=== PATIENT | female | born 1985 | race Caucasian/White ===

== ENCOUNTER → 2018-01-31 | Outpatient (CLI) | payer OTHER ==
--- NOTE | 2018-01-31 07:51 | US ---
EXAMINATION TYPE: US kidneys/renal and bladder DATE OF EXAM: 01/31/2018 COMPARISON: NONE CLINICAL HISTORY: N39.0 Frequent UTIs. hx of current bladder infection, on 3rd round of antibiotics. Left flank pain. EXAM MEASUREMENTS: Right Kidney: 9.6 x 5.1 x 5.4 cm Left Kidney: 10.6 x 4.6 x 5.3 cm Right Kidney: wnl Left Kidney: wnl Bladder: mildly distended, appears wnl as visualized. Patient states her bladder is full. Bilateral Jets not seen There is no evidence for hydronephrosis at this point in time. No nephrolithiasis is seen. No khanh s are identified. The urinary bladder is anechoic.. IMPRESSION: No hydronephrosis or nephrolithiasis. The urinary bladder is incompletely distended.
== END | disposition home or self-care (01) ==
LOC: RADUSWWP 06:58
PROVIDERS: ATTEND Internal Medicine
DX: N32.89 Other specified disorders of bladder (principal)
CPT/HCPCS: 76770

== ENCOUNTER → 2019-03-27 | Outpatient (CLI) | payer OTHER ==
--- NOTE | 2019-03-27 15:15 | XR ---
EXAMINATION TYPE: XR ankle complete RT, XR foot complete RT DATE OF EXAM: 03/27/2019 CLINICAL HISTORY: Right ankle and foot pain after injury TECHNIQUE: Frontal, lateral and oblique images of the right ankle and foot are obtained. COMPARISON: None. FINDINGS: There is no acute fracture/dislocation evident in the right ankle. The ankle mortise appe ars within normal limits. The overlying soft tissue appears unremarkable. There is no acute fractur e or dislocation evident in the right foot. The joint spaces in the right foot are preserved. Small plantar calcaneal heel spurs. Overlying soft tissue is unremarkable. IMPRESSION: There is no acute fracture or dislocation in the right ankle or foot.
--- NOTE | 2019-03-27 15:16 | XR ---
EXAMINATION TYPE: XR knee complete LT DATE OF EXAM: 03/27/2019 CLINICAL HISTORY: Left knee pain after injury TECHNIQUE: Three views of the left knee are obtained. COMPARISON: None. FINDINGS: There is no acute fracture/dislocation evident in left knee. The tri-compartment joint sp aces appear within normal limits. The overlying soft tissue appears unremarkable. IMPRESSION: There is no acute fracture or dislocation in the left knee.
== END | disposition home or self-care (01) ==
LOC: RADXRMAIN 14:36
PROVIDERS: ATTEND Emergency Medicine
DX: S93.401A Sprain of unspecified ligament of right ankle, initial encounter (principal); S93.601A Unspecified sprain of right foot, initial encounter; S80.02XA Contusion of left knee, initial encounter

== ENCOUNTER → 2020-03-05 | Outpatient (CLI) | payer OTHER ==
--- NOTE | 2020-03-05 14:58 | XR ---
Lumbar spine HISTORY: R 52, pain 3 views of the lumbar spine There is multilevel spondylosis. Lumbar vertebral bodies show preserved height, alignment, and bone m ineralization. Mild loss of disc height at the intervertebral level L5-S1. Sclerosis present in the p osterior elements. IMPRESSION: Mild degenerative disc disease, facet arthropathy.
--- NOTE | 2020-03-05 14:59 | XR ---
EXAMINATION TYPE: XR knee limited LT DATE OF EXAM: 03/05/2020 CLINICAL HISTORY: Pain TECHNIQUE: Two views of the left knee are obtained. COMPARISON: Left knee x-ray dated 03/27/2019. FINDINGS: There is no acute fracture/dislocation evident in left knee. The tri-compartment joint sp aces appear stable and within normal limits. The overlying soft tissue appears unremarkable. IMPRESSION: As above. No significant change from prior.
== END | disposition home or self-care (01) ==
LOC: RADXRMAIN 14:25
PROVIDERS: ATTEND Internal Medicine
DX: M51.37 Other intervertebral disc degeneration, lumbosacral region (principal); M47.817 Spondylosis without myelopathy or radiculopathy, lumbosacral region; M25.562 Pain in left knee
CPT/HCPCS: 72100

== ENCOUNTER → 2020-07-09 | Outpatient (CLI) | payer OTHER ==
[2020-07-09 18:41] LABS: Basophils # (A) 0.04 X 10*3/uL (0.00-0.10); Basophils % (A) 0.6 %; Eosinophils # (A) 0.16 X 10*3/uL (0.04-0.35); Eosinophils % (A) 2.6 %; HCT 40.1 % (37.2-46.3); HGB 12.8 g/dL (12.0-15.0); Lymphocytes # (A) 2.55 X 10*3/uL (0.90-5.00); Lymphocytes % (A) 40.7 %; MCH 28.6 pg (27.0-32.0); MCHC 31.9 g/dL (32.0-37.0); MCV 89.5 fL (80.0-97.0); Mean Platelet Volume 10.5 fL (9.5-12.2); Monocytes # (A) 0.52 X 10*3/uL (0.20-1.00); Monocytes % (A) 8.3 %; Neutrophils # (A) 2.98 X 10*3/uL (1.80-7.70); Neutrophils % (A) 47.6 %; Platelet Count 407 X 10*3/uL (140-440); RBC 4.48 X 10*6/uL (4.10-5.20); WBC 6.26 X 10*3/uL (4.50-10.00)
[2020-07-09 23:26] LABS: African American GFR (CKD) 130.1 (60.0-200.0); Albumin 4.4 g/dL (3.80-4.90); Albumin/Globulin Ratio 1.83 (1.60-3.17); Anion Gap 10.1 mmol/L (4.00-12.00); BUN/Creat Ratio 24.29 Ratio (12.00-20.00); Calcium 9.6 mg/dL (8.7-10.3); Carbon Dioxide 25.9 mmol/L (21.6-31.8); Chol/HDL Ratio 3.93; Globulin 2.4 g/dL (1.6-3.3); LDL Cholesterol,Calculated 133.6 mg/dL (0.0-131.0); Non-African American GFR(CKD) 112.3 (60.0-200.0); Potassium 4.3 mmol/L (3.5-5.5); Total Bilirubin 0.3 mg/dL (0.2-1.2); Total Protein 6.8 g/dL (6.2-8.2); VLDL Calculation 39.4 mg/dL (5.00-40.00)
[2020-07-09 23:35] LABS: T4, Free (Free Thyroxine) 1.1 ng/dL (0.80-1.80)
== END | disposition home or self-care (01) ==
LOC: LABWHC1 10:37
PROVIDERS: ATTEND Nurse Practitioner Family
DX: Z00.00 Encounter for general adult medical examination without abnormal findings (principal); Z11.59 Encounter for screening for other viral diseases
CPT/HCPCS: 36415; 80053; 80061; 82306; 84439; 84443; 85025; 86803